=== PATIENT | male | born 1940 | race Caucasian/White ===

== ENCOUNTER 2022-05-02 12:14 | Inpatient (IN) | payer MEDICARE ==
[~2022-05-02] VITALS: Ht 175.3 cm; Wt 69.3 kg
[2022-05-02 13:23] LABS: VENOUS HCO3 24.7 MEQ/L (23.0-27.0); VENOUS O2 SATURATION 54.5 % (60.0-80.0); VENOUS PARTIAL PRESSURE CO2 44.5 mmHg (38.0-50.0); VENOUS PARTIAL PRESSURE O2 30.4 mmHg (30.0-50.0); VENOUS PH 7.362 UNITS (7.330-7.430); VENOUS STANDARD HCO3 22.5 MEQ/L; VENOUS TOTAL CO2 26.1 MEQ/L (24.0-28.0)
[2022-05-02 13:29] LABS: BASO % 0.2 % (0.0-1.0); HEMATOCRIT 45.6 % (42.0-52.0); HEMOGLOBIN 15.6 g/dl (13.5-17.5); MEAN CORPUSCULAR HEMOGLOBIN 31.8 pg (27.0-33.0); MEAN CORPUSCULAR HGB CONC 34.2 g/dl (32.0-36.5); MEAN CORPUSCULAR VOLUME 92.9 fl (80.0-96.0); MONO % 9.6 % (2.0-8.0); NEUTROPHILS # 21.5 10^3/uL (1.5-8.5); NEUTROPHILS % 85.6 % (36.0-66.0); PLATELET COUNT, AUTOMATED 241 10^3/uL (150-450); RED BLOOD COUNT 4.91 10^6/uL (4.30-6.10); WHITE BLOOD COUNT 25.1 10^3/uL (4.0-10.0)
[2022-05-02] MEDS ORDERED: GLIP5TAB8 PO (13:39)
[2022-05-02] MEDS ORDERED: LEVO50TA5 PO (13:39)
[2022-05-02] MEDS ORDERED: SIMV10TA21 PO (13:39)
[2022-05-02] MEDS ORDERED: PANT40TA29 PO (13:39)
[2022-05-02] MEDS ORDERED: DILT180C70 PO (13:39)
[2022-05-02 13:54] LABS: MONO # 2.4 10^3/uL (0.0-0.8)
[2022-05-02 14:17] LABS: RSV AMPLIFICATION NEGATIVE (NEGATIVE)
[2022-05-02 14:18] LABS: ALBUMIN 3.4 GM/DL (3.2-5.2); BILIRUBIN,DIRECT 0.3 MG/DL (0.0-0.2); BILIRUBIN,TOTAL 1.1 MG/DL (0.2-1.0); CALCIUM LEVEL 9.2 MG/DL (8.8-10.2); CREATININE FOR GFR 1.59 MG/DL (0.70-1.30); GLOMERULAR FILTRATION RATE 44.7 (>35); POTASSIUM SERUM 3.9 MEQ/L (3.5-5.1); THYROID STIMULATING HORMONE 0.518 uIU/ML (0.358-3.740); TOTAL PROTEIN 6.8 GM/DL (6.4-8.2)
[2022-05-02] MEDS ORDERED: NS 1,000 ML IV SCH (15:50)
[2022-05-02] MEDS ORDERED: NS 1,000 ML IV ONE (15:50)
[2022-05-02 15:52] LABS: BACTERIA, URINE NONE SEEN; HYALINE CAST, URINE NONE SEEN /lpf (0-1); MUCUS, URINE MOD AMOUNT (NEGATIVE); SQUAMOUS EPITHELIAL CELL URINE SMALL AMOUNT /hpf (SMALL AMT)
[2022-05-02] MEDS ORDERED: NS 1,520 ML in IV 1 EA IV ONE (15:55)
[2022-05-02] MEDS ORDERED: cefTRIAXone SOD 2 GM in D5W MINI-BAG PLUS 50 ML IV ONE (15:55)
[2022-05-02 16:03] LABS: AMORPHOUS SEDIMENT, URINE MOD AMOUNT (NEGATIVE)
[2022-05-02] MEDS ORDERED: HOME MED LIST COMPLETE! XX SCH (16:30)
[2022-05-02] MEDS ORDERED: GLUCOSE 4GM CHEW TABLET PO PRN (17:05)
[2022-05-02] MEDS ORDERED: ACETAMINOPHEN TAB 650MG DOSE (2X325MG) PO PRN (17:05)
[2022-05-02] MEDS ORDERED: MAALOX 30 ML SUSP *UDC PO PRN (17:05)
[2022-05-02] MEDS ORDERED: GLUCAGON INJ 1MG VIAL SC PRN (17:05)
[2022-05-02] MEDS ORDERED: DEXTROSE 50% 50 ML SYRINGE IV PRN (17:05)
[2022-05-02] MEDS ORDERED: MOM 30ML SUSPENSION UDC PO PRN (17:05)
[2022-05-02] MEDS ORDERED: PANTOPRAZOLE 40MG TAB (PROTONIX) PO PRN (17:35)
[2022-05-02] MEDS: NS 1,000 ML IV SCH (18:00)
[2022-05-02 19:11] LABS: HEMOGLOBIN A1c 6.1 %
[2022-05-02 19:54] LABS: CK-MB VALUE MASS 71.7 NG/ML (<3.6); MB/CK RELATIVE INDEX 1.65 (< OR =4)
[2022-05-02] MEDS: INSULIN LISPRO (NovoLOG) PER UNIT SC SCH ×2 (21:01→21:41)
[2022-05-02 21:27] LABS: CK-MB VALUE MASS 71.1 NG/ML (<3.6); MB/CK RELATIVE INDEX 1.64 (< OR =4)
[2022-05-02] MEDS: DOCUSATE SODIUM 100MG CAPSULE PO SCH (22:01)
[2022-05-02] MEDS: HEPARIN SOD (PORCINE) 5000UNITS/ML 1ML VIAL/SYRINGE SC SCH (22:02)
[2022-05-03 02:07] LABS: CK-MB VALUE MASS 66.5 NG/ML (<3.6); MB/CK RELATIVE INDEX 1.61 (< OR =4)
[2022-05-03] MEDS: NS 1,000 ML IV SCH ×2 (03:25→15:24)
[2022-05-03] MEDS: LEVOTHYROXINE 50MCG TABLET (0.05MG) PO SCH (06:00)
[2022-05-03] MEDS: HEPARIN SOD (PORCINE) 5000UNITS/ML 1ML VIAL/SYRINGE SC SCH ×3 (06:00→21:15)
[2022-05-03 06:47] LABS: BASO # 0.1 10^3/uL (0.0-0.2); BASO % 0.3 % (0.0-1.0); EOS % 0.1 % (0.0-3.0); HEMATOCRIT 45.4 % (42.0-52.0); LYMPH # 1.4 10^3/uL (1.5-5.0); LYMPH % 8.2 % (24.0-44.0); MEAN CORPUSCULAR HEMOGLOBIN 31.4 pg (27.0-33.0); MONO % 9.2 % (2.0-8.0); NEUTROPHILS # 14.2 10^3/uL (1.5-8.5); NEUTROPHILS % 81.6 % (36.0-66.0); PLATELET COUNT, AUTOMATED 216 10^3/uL (150-450); RED BLOOD COUNT 4.78 10^6/uL (4.30-6.10); WHITE BLOOD COUNT 17.4 10^3/uL (4.0-10.0)
[2022-05-03 07:27] LABS: ALT/SGPT 48 U/L (12-78); BILIRUBIN,DIRECT 0.4 MG/DL (0.0-0.2); BILIRUBIN,TOTAL 0.8 MG/DL (0.2-1.0); BLOOD UREA NITROGEN 25 MG/DL (7-18); CALCIUM LEVEL 9.1 MG/DL (8.8-10.2); CARBON DIOXIDE LEVEL 22 MEQ/L (21-32); CHLORIDE LEVEL 108 MEQ/L (98-107); CREATININE FOR GFR 1.25 MG/DL (0.70-1.30); GLUCOSE, FASTING 86 MG/DL (70-100); POTASSIUM SERUM 3.9 MEQ/L (3.5-5.1); SODIUM LEVEL 141 MEQ/L (136-145)
[2022-05-03] MEDS: INSULIN LISPRO (NovoLOG) PER UNIT SC SCH ×4 (07:30→21:00)
[2022-05-03 07:47] LABS: MONO # 1.6 10^3/uL (0.0-0.8)
[2022-05-03] MEDS: DOCUSATE SODIUM 100MG CAPSULE PO SCH ×2 (09:45→21:00)
[2022-05-03 11:54] LABS: HEPATITIS B SURFACE ANTIGEN NEGATIVE (NEGATIVE)
[2022-05-03 12:21] LABS: HEPATITIS B CORE ANTIBODY IGM NEGATIVE (NEGATIVE)
[2022-05-03] MEDS ORDERED: cefTRIAXone SOD 1 GM in D5W MINI-BAG PLUS 50 ML IV SCH (16:00)
[2022-05-03 17:14] VITALS: BP 135/77
[2022-05-03 20:00] VITALS: BP 146/74
[2022-05-04] VITALS: BP 155/73
[2022-05-04 04:00] VITALS: BP 133/73
[2022-05-04] MEDS: LEVOTHYROXINE 50MCG TABLET (0.05MG) PO SCH (05:12)
[2022-05-04] MEDS: NS 1,000 ML IV SCH ×2 (05:13→17:08)
[2022-05-04] MEDS: HEPARIN SOD (PORCINE) 5000UNITS/ML 1ML VIAL/SYRINGE SC SCH ×3 (05:13→22:01)
[2022-05-04 06:57] LABS: BASO # 0.1 10^3/uL (0.0-0.2); BASO % 0.4 % (0.0-1.0); EOS # 0.2 10^3/uL (0.0-0.5); EOS % 1.1 % (0.0-3.0); HEMATOCRIT 42.5 % (42.0-52.0); HEMOGLOBIN 14.2 g/dl (13.5-17.5); LYMPH # 1.4 10^3/uL (1.5-5.0); LYMPH % 10.3 % (24.0-44.0); MEAN CORPUSCULAR HEMOGLOBIN 31.8 pg (27.0-33.0); MEAN CORPUSCULAR HGB CONC 33.4 g/dl (32.0-36.5); MEAN CORPUSCULAR VOLUME 95.1 fl (80.0-96.0); MONO # 1.2 10^3/uL (0.0-0.8); MONO % 9.1 % (2.0-8.0); NEUTROPHILS # 10.6 10^3/uL (1.5-8.5); NEUTROPHILS % 78.6 % (36.0-66.0); PLATELET COUNT, AUTOMATED 199 10^3/uL (150-450); RED BLOOD COUNT 4.47 10^6/uL (4.30-6.10); WHITE BLOOD COUNT 13.5 10^3/uL (4.0-10.0)
[2022-05-04] MEDS: INSULIN LISPRO (NovoLOG) PER UNIT SC SCH ×4 (07:30→20:05)
[2022-05-04 07:34] LABS: ALBUMIN 2.8 GM/DL (3.2-5.2); BILIRUBIN,DIRECT 0.2 MG/DL (0.0-0.2); BILIRUBIN,TOTAL 0.5 MG/DL (0.2-1.0); CALCIUM LEVEL 8.8 MG/DL (8.8-10.2); CREATININE FOR GFR 1.25 MG/DL (0.70-1.30); MAGNESIUM LEVEL 1.9 MG/DL (1.8-2.4); POTASSIUM SERUM 3.8 MEQ/L (3.5-5.1); TOTAL PROTEIN 5.6 GM/DL (6.4-8.2)
[2022-05-04 08:01] VITALS: BP 113/59
[2022-05-04] MEDS: DOCUSATE SODIUM 100MG CAPSULE PO SCH ×2 (09:59→20:05)
[2022-05-04 11:42] VITALS: BP 109/55
[2022-05-04 16:00] VITALS: BP 118/62
[2022-05-04 20:00] VITALS: BP 128/90
[2022-05-05] VITALS: BP 147/70
[2022-05-05 04:00] VITALS: BP 120/62
[2022-05-05 05:21] LABS: BASO # 0.1 10^3/uL (0.0-0.2); BASO % 0.6 % (0.0-1.0); EOS # 0.3 10^3/uL (0.0-0.5); EOS % 2.4 % (0.0-3.0); HEMATOCRIT 39.9 % (42.0-52.0); HEMOGLOBIN 13.3 g/dl (13.5-17.5); LYMPH # 1.5 10^3/uL (1.5-5.0); LYMPH % 13.3 % (24.0-44.0); MEAN CORPUSCULAR HEMOGLOBIN 31.5 pg (27.0-33.0); MEAN CORPUSCULAR HGB CONC 33.3 g/dl (32.0-36.5); MEAN CORPUSCULAR VOLUME 94.5 fl (80.0-96.0); MONO # 1.2 10^3/uL (0.0-0.8); MONO % 10.8 % (2.0-8.0); NEUTROPHILS # 7.9 10^3/uL (1.5-8.5); NEUTROPHILS % 72.2 % (36.0-66.0); PLATELET COUNT, AUTOMATED 209 10^3/uL (150-450); RED BLOOD COUNT 4.22 10^6/uL (4.30-6.10)
[2022-05-05 06:01] LABS: ALBUMIN 2.3 GM/DL (3.2-5.2); ALT/SGPT 42 U/L (12-78); BILIRUBIN,DIRECT 0.4 MG/DL (0.0-0.2); BILIRUBIN,TOTAL 0.6 MG/DL (0.2-1.0); BLOOD UREA NITROGEN 29 MG/DL (7-18); CALCIUM LEVEL 8.2 MG/DL (8.8-10.2); CARBON DIOXIDE LEVEL 25 MEQ/L (21-32); CHLORIDE LEVEL 110 MEQ/L (98-107); CREATININE FOR GFR 1.16 MG/DL (0.70-1.30); GLOMERULAR FILTRATION RATE > 60.0 (>35); GLUCOSE, FASTING 104 MG/DL (70-100); MAGNESIUM LEVEL 1.8 MG/DL (1.8-2.4); POTASSIUM SERUM 3.7 MEQ/L (3.5-5.1); SODIUM LEVEL 141 MEQ/L (136-145); TOTAL PROTEIN 5.2 GM/DL (6.4-8.2)
[2022-05-05] MEDS: HEPARIN SOD (PORCINE) 5000UNITS/ML 1ML VIAL/SYRINGE SC SCH ×3 (06:26→21:09)
[2022-05-05] MEDS: LEVOTHYROXINE 50MCG TABLET (0.05MG) PO SCH (06:27)
[2022-05-05] MEDS: INSULIN LISPRO (NovoLOG) PER UNIT SC SCH ×4 (07:30→20:21)
[2022-05-05 08:00] VITALS: BP 133/64
[2022-05-05] MEDS: DOCUSATE SODIUM 100MG CAPSULE PO SCH ×2 (08:32→20:21)
[2022-05-05] MEDS: SENNA 8.6 MG TAB (SENOKOT) PO SCH ×2 (12:41→20:21)
[2022-05-05 14:00] VITALS: BP 157/79
[2022-05-05 20:00] VITALS: BP 140/68
[2022-05-06] VITALS (7 sets, daily range): BP systolic 144–170; BP diastolic 67–80
[2022-05-06] MEDS: LEVOTHYROXINE 50MCG TABLET (0.05MG) PO SCH (05:38)
[2022-05-06] MEDS: HEPARIN SOD (PORCINE) 5000UNITS/ML 1ML VIAL/SYRINGE SC SCH ×3 (05:38→20:53)
[2022-05-06 05:46] LABS: BASO # 0.1 10^3/uL (0.0-0.2); BASO % 0.7 % (0.0-1.0); EOS # 0.3 10^3/uL (0.0-0.5); EOS % 3.4 % (0.0-3.0); HEMATOCRIT 37.8 % (42.0-52.0); HEMOGLOBIN 12.6 g/dl (13.5-17.5); LYMPH # 1.5 10^3/uL (1.5-5.0); LYMPH % 16.6 % (24.0-44.0); MEAN CORPUSCULAR HEMOGLOBIN 30.8 pg (27.0-33.0); MEAN CORPUSCULAR HGB CONC 33.3 g/dl (32.0-36.5); MEAN CORPUSCULAR VOLUME 92.4 fl (80.0-96.0); MONO # 1.3 10^3/uL (0.0-0.8); MONO % 13.7 % (2.0-8.0); NEUTROPHILS % 64.7 % (36.0-66.0); PLATELET COUNT, AUTOMATED 210 10^3/uL (150-450); RED BLOOD COUNT 4.09 10^6/uL (4.30-6.10); WHITE BLOOD COUNT 9.2 10^3/uL (4.0-10.0)
[2022-05-06 06:40] LABS: BLOOD UREA NITROGEN 23 MG/DL (7-18); CREATININE FOR GFR 1.05 MG/DL (0.70-1.30); GLUCOSE, FASTING 120 MG/DL (70-100)
[2022-05-06 06:41] LABS: ALBUMIN 2.3 GM/DL (3.2-5.2); ALT/SGPT 40 U/L (12-78); BILIRUBIN,DIRECT 0.2 MG/DL (0.0-0.2); BILIRUBIN,TOTAL 0.5 MG/DL (0.2-1.0); CALCIUM LEVEL 8.2 MG/DL (8.8-10.2); CARBON DIOXIDE LEVEL 25 MEQ/L (21-32); CHLORIDE LEVEL 110 MEQ/L (98-107); GLOMERULAR FILTRATION RATE > 60.0 (>35); MAGNESIUM LEVEL 1.6 MG/DL (1.8-2.4); POTASSIUM SERUM 3.6 MEQ/L (3.5-5.1); SODIUM LEVEL 141 MEQ/L (136-145); TOTAL PROTEIN 5.2 GM/DL (6.4-8.2)
[2022-05-06] MEDS: MAG SULF 1GM/100ML (MAG RUN) 1 GM in IV 1 EA IV SCH ×4 (08:24→11:44)
[2022-05-06] MEDS: SENNA 8.6 MG TAB (SENOKOT) PO SCH ×2 (08:25→20:53)
[2022-05-06] MEDS: DOCUSATE SODIUM 100MG CAPSULE PO SCH ×2 (08:25→20:53)
[2022-05-06] MEDS: ATORVASTATIN 20 MG TAB PO SCH (08:25)
[2022-05-06] MEDS: INSULIN LISPRO (NovoLOG) PER UNIT SC SCH ×4 (08:25→20:54)
[2022-05-06] MEDS ORDERED: POTASSIUM CHLORIDE 10MEQ SR TABLET PO ONE (12:55)
[2022-05-07 05:54] VITALS: BP 121/74
[2022-05-07] MEDS: HEPARIN SOD (PORCINE) 5000UNITS/ML 1ML VIAL/SYRINGE SC SCH ×3 (05:57→20:41)
[2022-05-07] MEDS: LEVOTHYROXINE 50MCG TABLET (0.05MG) PO SCH (05:57)
[2022-05-07 06:01] LABS: BASO # 0.1 10^3/uL (0.0-0.2); BASO % 0.7 % (0.0-1.0); EOS # 0.4 10^3/uL (0.0-0.5); EOS % 3.7 % (0.0-3.0); HEMATOCRIT 36.4 % (42.0-52.0); HEMOGLOBIN 12.4 g/dl (13.5-17.5); LYMPH # 1.6 10^3/uL (1.5-5.0); MEAN CORPUSCULAR HEMOGLOBIN 31.3 pg (27.0-33.0); MEAN CORPUSCULAR HGB CONC 34.1 g/dl (32.0-36.5); MEAN CORPUSCULAR VOLUME 91.9 fl (80.0-96.0); MONO # 1.4 10^3/uL (0.0-0.8); MONO % 14.3 % (2.0-8.0); NEUTROPHILS # 6.2 10^3/uL (1.5-8.5); NEUTROPHILS % 64.3 % (36.0-66.0); PLATELET COUNT, AUTOMATED 213 10^3/uL (150-450); RED BLOOD COUNT 3.96 10^6/uL (4.30-6.10); WHITE BLOOD COUNT 9.7 10^3/uL (4.0-10.0)
[2022-05-07 06:27] LABS: ALBUMIN 2.2 GM/DL (3.2-5.2); ALT/SGPT 37 U/L (12-78); BILIRUBIN,DIRECT 0.3 MG/DL (0.0-0.2); BILIRUBIN,TOTAL 0.5 MG/DL (0.2-1.0); BLOOD UREA NITROGEN 21 MG/DL (7-18); CALCIUM LEVEL 8.4 MG/DL (8.8-10.2); CARBON DIOXIDE LEVEL 25 MEQ/L (21-32); CHLORIDE LEVEL 104 MEQ/L (98-107); CREATININE FOR GFR 1.07 MG/DL (0.70-1.30); GLOMERULAR FILTRATION RATE > 60.0 (>35); GLUCOSE, FASTING 116 MG/DL (70-100); MAGNESIUM LEVEL 2.3 MG/DL (1.8-2.4); POTASSIUM SERUM 3.7 MEQ/L (3.5-5.1); SODIUM LEVEL 137 MEQ/L (136-145)
[2022-05-07] MEDS: ATORVASTATIN 20 MG TAB PO SCH (08:19)
[2022-05-07] MEDS: INSULIN LISPRO (NovoLOG) PER UNIT SC SCH ×4 (08:20→19:56)
[2022-05-07] MEDS: DOCUSATE SODIUM 100MG CAPSULE PO SCH ×2 (09:00→20:41)
[2022-05-07] MEDS: SENNA 8.6 MG TAB (SENOKOT) PO SCH ×2 (09:00→20:41)
[2022-05-07 14:00] VITALS: BP 135/71
[2022-05-07 21:00] VITALS: BP 140/70
[2022-05-08] MEDS: HEPARIN SOD (PORCINE) 5000UNITS/ML 1ML VIAL/SYRINGE SC SCH ×3 (05:52→20:53)
[2022-05-08] MEDS: LEVOTHYROXINE 50MCG TABLET (0.05MG) PO SCH (05:52)
[2022-05-08 06:00] VITALS: BP 147/68
[2022-05-08] MEDS ORDERED: ASPIRIN 81 MG CHEW TABLET PO SCH (09:00)
[2022-05-08] MEDS: ATORVASTATIN 20 MG TAB PO SCH (09:25)
[2022-05-08] MEDS: SENNA 8.6 MG TAB (SENOKOT) PO SCH ×2 (09:25→19:45)
[2022-05-08] MEDS: DOCUSATE SODIUM 100MG CAPSULE PO SCH ×2 (09:25→19:45)
[2022-05-08] MEDS: INSULIN LISPRO (NovoLOG) PER UNIT SC SCH ×4 (09:26→20:49)
[2022-05-08] MEDS: ASPIRIN 81MG ENTERIC TABLET PO SCH (12:54)
[2022-05-09 03:38] VITALS: BP 138/70
[2022-05-09] MEDS: HEPARIN SOD (PORCINE) 5000UNITS/ML 1ML VIAL/SYRINGE SC SCH ×3 (05:27→20:40)
[2022-05-09] MEDS: LEVOTHYROXINE 50MCG TABLET (0.05MG) PO SCH (05:27)
[2022-05-09 06:00] VITALS: BP 128/89
[2022-05-09] MEDS: SENNA 8.6 MG TAB (SENOKOT) PO SCH ×2 (09:00→20:40)
[2022-05-09] MEDS: DOCUSATE SODIUM 100MG CAPSULE PO SCH ×2 (09:54→20:40)
[2022-05-09] MEDS: ASPIRIN 81MG ENTERIC TABLET PO SCH (09:54)
[2022-05-09] MEDS: ATORVASTATIN 20 MG TAB PO SCH (09:55)
[2022-05-09] MEDS: INSULIN LISPRO (NovoLOG) PER UNIT SC SCH ×4 (09:56→20:41)
[2022-05-10 05:05] VITALS: BP 136/69
[2022-05-10] MEDS: LEVOTHYROXINE 50MCG TABLET (0.05MG) PO SCH (05:05)
[2022-05-10] MEDS: HEPARIN SOD (PORCINE) 5000UNITS/ML 1ML VIAL/SYRINGE SC SCH ×3 (05:05→22:37)
[2022-05-10] MEDS: ASPIRIN 81MG ENTERIC TABLET PO SCH (08:19)
[2022-05-10] MEDS: ATORVASTATIN 20 MG TAB PO SCH (08:19)
[2022-05-10] MEDS: INSULIN LISPRO (NovoLOG) PER UNIT SC SCH ×4 (08:19→20:41)
[2022-05-10] MEDS: SENNA 8.6 MG TAB (SENOKOT) PO SCH ×2 (08:21→20:41)
[2022-05-10] MEDS: DOCUSATE SODIUM 100MG CAPSULE PO SCH ×2 (08:22→20:41)
[2022-05-11 04:50] VITALS: BP 134/66
[2022-05-11] MEDS: HEPARIN SOD (PORCINE) 5000UNITS/ML 1ML VIAL/SYRINGE SC SCH ×3 (06:00→21:41)
[2022-05-11] MEDS: LEVOTHYROXINE 50MCG TABLET (0.05MG) PO SCH (06:00)
[2022-05-11] MEDS: INSULIN LISPRO (NovoLOG) PER UNIT SC SCH ×4 (07:20→20:10)
[2022-05-11] MEDS: DOCUSATE SODIUM 100MG CAPSULE PO SCH ×2 (08:07→20:06)
[2022-05-11] MEDS: ASPIRIN 81MG ENTERIC TABLET PO SCH (08:07)
[2022-05-11] MEDS: SENNA 8.6 MG TAB (SENOKOT) PO SCH ×2 (08:08→20:06)
[2022-05-11] MEDS: ATORVASTATIN 20 MG TAB PO SCH (08:08)
[2022-05-11 21:00] VITALS: BP 144/84
[2022-05-12] MEDS: LEVOTHYROXINE 50MCG TABLET (0.05MG) PO SCH (05:47)
[2022-05-12] MEDS: HEPARIN SOD (PORCINE) 5000UNITS/ML 1ML VIAL/SYRINGE SC SCH ×3 (05:47→21:07)
[2022-05-12 06:30] VITALS: BP 126/63
[2022-05-12] MEDS: ASPIRIN 81MG ENTERIC TABLET PO SCH (07:59)
[2022-05-12] MEDS: INSULIN LISPRO (NovoLOG) PER UNIT SC SCH ×4 (07:59→21:00)
[2022-05-12] MEDS: ATORVASTATIN 20 MG TAB PO SCH (07:59)
[2022-05-12] MEDS: DOCUSATE SODIUM 100MG CAPSULE PO SCH ×2 (07:59→21:06)
[2022-05-12] MEDS: SENNA 8.6 MG TAB (SENOKOT) PO SCH ×2 (07:59→21:06)
[2022-05-13] MEDS: LEVOTHYROXINE 50MCG TABLET (0.05MG) PO SCH (05:33)
[2022-05-13] MEDS: HEPARIN SOD (PORCINE) 5000UNITS/ML 1ML VIAL/SYRINGE SC SCH ×2 (05:34→13:32)
[2022-05-13 05:50] VITALS: BP 151/77
[2022-05-13] MEDS: INSULIN LISPRO (NovoLOG) PER UNIT SC SCH ×2 (07:30→13:32)
[2022-05-13] MEDS: SENNA 8.6 MG TAB (SENOKOT) PO SCH (09:00)
[2022-05-13] MEDS: ATORVASTATIN 20 MG TAB PO SCH (09:11)
[2022-05-13] MEDS: ASPIRIN 81MG ENTERIC TABLET PO SCH (09:11)
[2022-05-13] MEDS: DOCUSATE SODIUM 100MG CAPSULE PO SCH (09:11)
[2022-05-13 09:12] VITALS: BP 151/77
[2022-05-13 09:59] VITALS: BP 130/72
[2022-05-13 11:58] VITALS: BP 125/70
[2022-05-13] MEDS ORDERED: HEPA500023 SC (12:29)
[2022-05-13] MEDS ORDERED: MIRA3350 PO (12:29)
[2022-05-13] MEDS ORDERED: COLA100C5 PO (12:29)
[2022-05-13] MEDS ORDERED: ASPI-551 PO (12:29)
== END 2022-05-13 17:05 | DRG 92 ==
LOC: M ED 12:14 → EDBD 12:14 → M ED INP 17:02 → ENRESERV 05-03 15:29 → M PCU 05-03 17:09 → M MSPAV 05-06 13:28
PROVIDERS: ADMIT Internal Medicine; ATTEND Internal Medicine
DX: R29.6 Repeated falls (principal); M62.82 Rhabdomyolysis; N17.9 Acute kidney failure, unspecified; E87.2 Acidosis; I12.9 Hypertensive chronic kidney disease with stage 1 through stage 4 chronic kidney disease, or unspecified chronic kidney disease; E11.22 Type 2 diabetes mellitus with diabetic chronic kidney disease; E78.5 Hyperlipidemia, unspecified; E03.9 Hypothyroidism, unspecified; N18.30 Chronic kidney disease, stage 3 unspecified; R55 Syncope and collapse; D72.829 Elevated white blood cell count, unspecified; K21.9 Gastro-esophageal reflux disease without esophagitis; Z66 Do not resuscitate; R00.1 Bradycardia, unspecified; E86.0 Dehydration; R23.8 Other skin changes; I48.0 Paroxysmal atrial fibrillation; R60.0 Localized edema; R74.01 Elevation of levels of liver transaminase levels; Z79.84 Long term (current) use of oral hypoglycemic drugs; Z79.890 Hormone replacement therapy; Z79.899 Other long term (current) drug therapy; Z88.8 Allergy status to other drugs, medicaments and biological substances

== ENCOUNTER 2023-09-13 08:34 | Inpatient (IN) | payer MEDICARE ==
[~2023-09-13] VITALS: Ht 175.3 cm; Wt 81.8 kg
[~2023-09-13 08:34] MED LIST: ASPI-551 PO; COLA100C5 PO; DILT180C70 PO; GLIP5TAB17 PO; HEPA500023 SC; LEVO50TA5 PO; MIRA3350 PO; PANT40TA29 PO; SIMV10TA21 PO
[2023-09-13] MEDS ORDERED: PANTOPRAZOLE 40MG TAB (PROTONIX) PO SCH (09:00)
[2023-09-13 09:33] LABS: VENOUS BASE EXCESS 2.4 (-2.0-2.0); VENOUS HCO3 28.8 MMOL/L (23.0-27.0); VENOUS O2 SATURATION 54.2 % (60.0-80.0); VENOUS PARTIAL PRESSURE CO2 50.8 mmHg (38.0-50.0); VENOUS PARTIAL PRESSURE O2 28.7 mmHg (30.0-50.0); VENOUS PH 7.372 UNITS (7.330-7.430); VENOUS STANDARD HCO3 25.4 MMOL/L; VENOUS TOTAL CO2 30.4 MMOL/L (24.0-28.0)
[2023-09-13 09:42] LABS: BASO # 0.1 10^3/uL (0.0-0.2); BASO % 0.5 % (0.0-1.0); EOS % 0.1 % (0.0-3.0); HEMATOCRIT 46.7 % (42.0-52.0); HEMOGLOBIN 15.5 g/dl (13.5-17.5); LYMPH # 0.9 10^3/uL (1.5-5.0); LYMPH % 7.7 % (24.0-44.0); MEAN CORPUSCULAR HEMOGLOBIN 32.2 pg (27.0-33.0); MEAN CORPUSCULAR HGB CONC 33.2 g/dl (32.0-36.5); MEAN CORPUSCULAR VOLUME 97.1 fl (80.0-96.0); MONO # 1.7 10^3/uL (0.0-0.8); MONO % 14.4 % (2.0-8.0); NEUTROPHILS # 8.9 10^3/uL (1.5-8.5); NEUTROPHILS % 76.7 % (36.0-66.0); PLATELET COUNT, AUTOMATED 216 10^3/uL (150-450); RED BLOOD COUNT 4.81 10^6/uL (4.30-6.10); WHITE BLOOD COUNT 11.6 10^3/uL (4.0-10.0)
[2023-09-13 10:02] LABS: ALBUMIN 3.7 G/DL (3.2-5.2); ALKALINE PHOSPHATASE 148 U/L (46-116); ALT/SGPT 31 U/L (7.0-40); AST/SGOT 42 U/L (<34); BILIRUBIN,DIRECT 0.2 MG/DL (<0.4); BILIRUBIN,TOTAL 0.6 MG/DL (0.3-1.2); BLOOD UREA NITROGEN 26 MG/DL (9-23); CALCIUM LEVEL 9.3 MG/DL (8.3-10.6); CARBON DIOXIDE LEVEL 29 MMOL/L (20-31); CHLORIDE LEVEL 100 MMOL/L (98-107); CK-MB VALUE MASS 1.7 NG/ML (<3.6); CREATININE FOR GFR 1.19 MG/DL (0.70-1.30); GLOMERULAR FILTRATION RATE > 60.0 (>35); GLUCOSE, FASTING 131 MG/DL (74-106); POTASSIUM SERUM 4.8 MMOL/L (3.5-5.1); SODIUM LEVEL 135 MMOL/L (136-145); TOTAL PROTEIN 6.6 G/DL (5.7-8.2)
[2023-09-13 10:04] LABS: FREE T4 1.09 NG/DL (0.89-1.76); THYROID STIMULATING HORMONE 1.487 uIU/ML (0.55-4.78)
[2023-09-13 10:05] LABS: CPK CREATINE PHOSPHOKINASE 550 U/L (46-171)
[2023-09-13 10:11] LABS: RSV AMPLIFICATION NEGATIVE (NEGATIVE)
[2023-09-13] MEDS ORDERED: ISOVUE-370 76% 100ML VIAL As Ordered ONE (10:33)
[2023-09-13 11:53] LABS: CK-MB VALUE MASS 1.9 NG/ML (<3.6)
[2023-09-13 11:55] LABS: MB/CK RELATIVE INDEX 0.37 (< OR =4)
[2023-09-13] MEDS ORDERED: REMDESIVIR 200 MG in NS 250 ML IV ONE ×2 (12:30→16:00)
[2023-09-13] MEDS ORDERED: **hydrALAZINE** 50 MG TAB PO ONE (12:30)
[2023-09-13] MEDS ORDERED: dexAMETHasone 20MG/5ML VIAL IV ONE (12:30)
[2023-09-13] MEDS ORDERED: MED REC IN PROGRESS XX SCH (13:10)
[2023-09-13] MEDS ORDERED: MIRALAX *UNIT DOSE* 17GM PACKET PO PRN (13:10)
[2023-09-13 14:30] VITALS: BP 165/90; TEMP 99; O2SAT 94
[2023-09-13] MEDS ORDERED: ALLO100T PO (14:30)
[2023-09-13] MEDS ORDERED: FURO20TA2 PO (14:30)
[2023-09-13] MEDS ORDERED: HOME MED LIST COMPLETE! XX SCH (14:40)
[2023-09-13] MEDS: NS 1,000 ML IV SCH (14:52)
[2023-09-13 15:45] VITALS: BP 142/81; TEMP 98.4; O2SAT 91
[2023-09-13] MEDS: LEVOTHYROXINE 50MCG TABLET (0.05MG) PO SCH (17:18)
[2023-09-13] MEDS: dilTIAZem **CD** 180MG CAP PO SCH (18:33)
[2023-09-13] MEDS: ASPIRIN 81MG ENTERIC TABLET PO SCH (18:36)
[2023-09-13 18:38] LABS: C REACTIVE PROTEIN QUANTITATIV 9.3 MG/DL (<1.0)
[2023-09-13 18:47] LABS: PROCALCITONIN 0.17 ng/ml
[2023-09-13 19:05] LABS: ERYTHROCYTE SEDIMENTATION RATE 60 mm/hr (0-20)
[2023-09-13] MEDS ORDERED: NIRMATRELVIR/RITONAVIR (RENAL) CO-PACK (EUA) PO SCH (21:00)
[2023-09-13] MEDS: HEPARIN SOD (PORCINE) 5000UNITS/ML 1ML VIAL/SYRINGE SQ SCH (21:15)
[2023-09-13] MEDS: DOCUSATE SODIUM 100MG CAPSULE PO SCH (21:15)
[2023-09-13] MEDS: NIRMATRELVIR/RITONAVIR CO-PACK (EMERGENCY USE AUTH) PO SCH (21:16)
[2023-09-14] MEDS: LEVOTHYROXINE 50MCG TABLET (0.05MG) PO SCH (05:31)
[2023-09-14] MEDS: HEPARIN SOD (PORCINE) 5000UNITS/ML 1ML VIAL/SYRINGE SQ SCH ×3 (05:32→21:18)
[2023-09-14 06:00] VITALS: BP 123/74; TEMP 98.8; O2SAT 94
[2023-09-14 06:34] LABS: BASO % 0.1 % (0.0-1.0); HEMATOCRIT 40.2 % (42.0-52.0); HEMOGLOBIN 13.6 g/dl (13.5-17.5); LYMPH # 0.9 10^3/uL (1.5-5.0); LYMPH % 13.2 % (24.0-44.0); MEAN CORPUSCULAR HEMOGLOBIN 32.5 pg (27.0-33.0); MEAN CORPUSCULAR HGB CONC 33.8 g/dl (32.0-36.5); MEAN CORPUSCULAR VOLUME 96.2 fl (80.0-96.0); MONO # 0.4 10^3/uL (0.0-0.8); MONO % 5.7 % (2.0-8.0); NEUTROPHILS # 5.4 10^3/uL (1.5-8.5); NEUTROPHILS % 80.7 % (36.0-66.0); PLATELET COUNT, AUTOMATED 182 10^3/uL (150-450); RED BLOOD COUNT 4.18 10^6/uL (4.30-6.10); WHITE BLOOD COUNT 6.7 10^3/uL (4.0-10.0)
[2023-09-14] MEDS: NS 1,000 ML IV SCH ×2 (06:42→18:25)
[2023-09-14 07:04] LABS: CALCIUM LEVEL 8.1 MG/DL (8.3-10.6); CREATININE FOR GFR 1.34 MG/DL (0.70-1.30); GLOMERULAR FILTRATION RATE 54.3 (>35); POTASSIUM SERUM 4.4 MMOL/L (3.5-5.1)
[2023-09-14] MEDS: ASPIRIN 81MG ENTERIC TABLET PO SCH (09:51)
[2023-09-14] MEDS: dilTIAZem **CD** 180MG CAP PO SCH (09:53)
[2023-09-14] MEDS: DOCUSATE SODIUM 100MG CAPSULE PO SCH ×2 (09:53→21:18)
[2023-09-14] MEDS: NIRMATRELVIR/RITONAVIR CO-PACK (EMERGENCY USE AUTH) PO SCH ×2 (09:54→21:19)
[2023-09-14 14:00] VITALS: BP 126/74; TEMP 97.9; O2SAT 94
[2023-09-14 16:44] LABS: CALCIUM LEVEL 8.3 MG/DL (8.3-10.6); CREATININE FOR GFR 1.34 MG/DL (0.70-1.30); GLOMERULAR FILTRATION RATE 54.3 (>35); POTASSIUM SERUM 4.7 MMOL/L (3.5-5.1)
[2023-09-14] MEDS ORDERED: NS 500 ML IV ONE (17:50)
[2023-09-14 22:00] VITALS: BP 126/65; TEMP 98.4; O2SAT 93
[2023-09-15] MEDS: HEPARIN SOD (PORCINE) 5000UNITS/ML 1ML VIAL/SYRINGE SQ SCH ×3 (05:30→20:37)
[2023-09-15] MEDS: NS 1,000 ML IV SCH (05:30)
[2023-09-15] MEDS: LEVOTHYROXINE 50MCG TABLET (0.05MG) PO SCH (05:30)
[2023-09-15 05:51] LABS: HEMATOCRIT 40.4 % (42.0-52.0); HEMOGLOBIN 13.7 g/dl (13.5-17.5); LYMPH # 1.2 10^3/uL (1.5-5.0); LYMPH % 14.1 % (24.0-44.0); MEAN CORPUSCULAR HEMOGLOBIN 32.8 pg (27.0-33.0); MEAN CORPUSCULAR HGB CONC 33.9 g/dl (32.0-36.5); MEAN CORPUSCULAR VOLUME 96.7 fl (80.0-96.0); MONO # 0.8 10^3/uL (0.0-0.8); MONO % 9.9 % (2.0-8.0); NEUTROPHILS # 6.3 10^3/uL (1.5-8.5); NEUTROPHILS % 75.8 % (36.0-66.0); PLATELET COUNT, AUTOMATED 189 10^3/uL (150-450); RED BLOOD COUNT 4.18 10^6/uL (4.30-6.10); WHITE BLOOD COUNT 8.3 10^3/uL (4.0-10.0)
[2023-09-15 06:00] VITALS: BP 132/78; TEMP 98.1; O2SAT 95
[2023-09-15 06:17] LABS: CALCIUM LEVEL 8.1 MG/DL (8.3-10.6); CREATININE FOR GFR 1.33 MG/DL (0.70-1.30); GLOMERULAR FILTRATION RATE 54.8 (>35)
[2023-09-15] MEDS: ASPIRIN 81MG ENTERIC TABLET PO SCH (08:30)
[2023-09-15] MEDS: dilTIAZem **CD** 180MG CAP PO SCH (08:31)
[2023-09-15] MEDS: DOCUSATE SODIUM 100MG CAPSULE PO SCH ×2 (08:31→20:36)
[2023-09-15] MEDS: NIRMATRELVIR/RITONAVIR CO-PACK (EMERGENCY USE AUTH) PO SCH (08:32)
[2023-09-15] MEDS ORDERED: NS 1,000 ML IV ONE (09:00)
[2023-09-15 14:00] VITALS: BP 132/78; TEMP 98.1; O2SAT 97
[2023-09-15 18:59] LABS: BLOOD UREA NITROGEN 41 MG/DL (9-23); CALCIUM LEVEL 7.7 MG/DL (8.3-10.6); CARBON DIOXIDE LEVEL 23 MMOL/L (20-31); CHLORIDE LEVEL 106 MMOL/L (98-107); CREATININE FOR GFR 1.22 MG/DL (0.70-1.30); GLOMERULAR FILTRATION RATE > 60.0 (>35); GLUCOSE, FASTING 212 MG/DL (74-106); POTASSIUM SERUM 4.3 MMOL/L (3.5-5.1); SODIUM LEVEL 136 MMOL/L (136-145)
[2023-09-15 20:04] VITALS: BP 139/80; TEMP 98.1; O2SAT 96
[2023-09-15] MEDS: DIMETHICONE 2% OINTMENT(VANICREAM) 70GM TUBE TOP SCH (20:36)
[2023-09-16] MEDS: LEVOTHYROXINE 50MCG TABLET (0.05MG) PO SCH (05:38)
[2023-09-16] MEDS: HEPARIN SOD (PORCINE) 5000UNITS/ML 1ML VIAL/SYRINGE SQ SCH ×3 (05:38→20:19)
[2023-09-16 06:13] LABS: BASO % 0.2 % (0.0-1.0); HEMATOCRIT 42.2 % (42.0-52.0); HEMOGLOBIN 14.5 g/dl (13.5-17.5); LYMPH # 1.6 10^3/uL (1.5-5.0); LYMPH % 16.8 % (24.0-44.0); MEAN CORPUSCULAR HGB CONC 34.4 g/dl (32.0-36.5); MEAN CORPUSCULAR VOLUME 95.9 fl (80.0-96.0); MONO # 0.8 10^3/uL (0.0-0.8); NEUTROPHILS # 7.2 10^3/uL (1.5-8.5); NEUTROPHILS % 74.6 % (36.0-66.0); PLATELET COUNT, AUTOMATED 216 10^3/uL (150-450); WHITE BLOOD COUNT 9.7 10^3/uL (4.0-10.0)
[2023-09-16 06:14] VITALS: BP 137/80; TEMP 98.2; O2SAT 96
[2023-09-16 06:38] LABS: BLOOD UREA NITROGEN 35 MG/DL (9-23); CALCIUM LEVEL 7.9 MG/DL (8.3-10.6); CARBON DIOXIDE LEVEL 25 MMOL/L (20-31); CHLORIDE LEVEL 107 MMOL/L (98-107); GLOMERULAR FILTRATION RATE > 60.0 (>35); GLUCOSE, FASTING 167 MG/DL (74-106); POTASSIUM SERUM 4.3 MMOL/L (3.5-5.1); SODIUM LEVEL 139 MMOL/L (136-145)
[2023-09-16] MEDS: dilTIAZem **CD** 180MG CAP PO SCH (09:40)
[2023-09-16] MEDS: ASPIRIN 81MG ENTERIC TABLET PO SCH (09:40)
[2023-09-16] MEDS: DOCUSATE SODIUM 100MG CAPSULE PO SCH ×2 (09:40→20:18)
[2023-09-16] MEDS: DIMETHICONE 2% OINTMENT(VANICREAM) 70GM TUBE TOP SCH ×2 (09:41→20:19)
[2023-09-16 14:00] VITALS: BP 130/68; TEMP 97.7; O2SAT 96
[2023-09-16] MEDS ORDERED: ALBUTEROL 90 MCG/ACT 8GM HFA INHALER INH PRN (18:25)
[2023-09-16] MEDS ORDERED: IPRATROPIUM 0.5MG/ALBUTEROL 2.5MG INH SOL UD 3ML (DUONEB) NEB ONE (18:25)
[2023-09-16 20:26] VITALS: BP 143/75; TEMP 98.4; O2SAT 96
[2023-09-17 05:09] VITALS: BP 138/68; TEMP 98.8; O2SAT 100
[2023-09-17] MEDS: HEPARIN SOD (PORCINE) 5000UNITS/ML 1ML VIAL/SYRINGE SQ SCH ×3 (05:36→21:17)
[2023-09-17] MEDS: LEVOTHYROXINE 50MCG TABLET (0.05MG) PO SCH (05:36)
[2023-09-17 08:53] LABS: BASO % 0.2 % (0.0-1.0); EOS # 0.1 10^3/uL (0.0-0.5); EOS % 0.5 % (0.0-3.0); LYMPH # 2.3 10^3/uL (1.5-5.0); LYMPH % 21.1 % (24.0-44.0); MEAN CORPUSCULAR HEMOGLOBIN 32.6 pg (27.0-33.0); MEAN CORPUSCULAR HGB CONC 34.1 g/dl (32.0-36.5); MEAN CORPUSCULAR VOLUME 95.6 fl (80.0-96.0); MONO # 1.1 10^3/uL (0.0-0.8); MONO % 9.7 % (2.0-8.0); NEUTROPHILS # 7.3 10^3/uL (1.5-8.5); NEUTROPHILS % 67.4 % (36.0-66.0); PLATELET COUNT, AUTOMATED 221 10^3/uL (150-450); RED BLOOD COUNT 4.29 10^6/uL (4.30-6.10); WHITE BLOOD COUNT 10.8 10^3/uL (4.0-10.0)
[2023-09-17 09:16] LABS: BLOOD UREA NITROGEN 28 MG/DL (9-23); CALCIUM LEVEL 8.2 MG/DL (8.3-10.6); CARBON DIOXIDE LEVEL 30 MMOL/L (20-31); CHLORIDE LEVEL 106 MMOL/L (98-107); CREATININE FOR GFR 1.17 MG/DL (0.70-1.30); GLOMERULAR FILTRATION RATE > 60.0 (>35); GLUCOSE, FASTING 170 MG/DL (74-106); POTASSIUM SERUM 3.9 MMOL/L (3.5-5.1); SODIUM LEVEL 140 MMOL/L (136-145)
[2023-09-17] MEDS: DOCUSATE SODIUM 100MG CAPSULE PO SCH ×2 (09:33→21:18)
[2023-09-17] MEDS: ASPIRIN 81MG ENTERIC TABLET PO SCH (09:33)
[2023-09-17] MEDS: dilTIAZem **CD** 180MG CAP PO SCH (09:35)
[2023-09-17] MEDS: DIMETHICONE 2% OINTMENT(VANICREAM) 70GM TUBE TOP SCH ×2 (09:36→21:18)
[2023-09-17 14:00] VITALS: BP 147/89; TEMP 97.9; O2SAT 84
[2023-09-18] MEDS: LEVOTHYROXINE 50MCG TABLET (0.05MG) PO SCH (05:25)
[2023-09-18] MEDS: HEPARIN SOD (PORCINE) 5000UNITS/ML 1ML VIAL/SYRINGE SQ SCH ×3 (05:26→21:40)
[2023-09-18 05:58] LABS: BASO # 0.1 10^3/uL (0.0-0.2); BASO % 0.4 % (0.0-1.0); EOS # 0.2 10^3/uL (0.0-0.5); EOS % 1.2 % (0.0-3.0); HEMATOCRIT 43.5 % (42.0-52.0); LYMPH # 2.2 10^3/uL (1.5-5.0); LYMPH % 17.4 % (24.0-44.0); MEAN CORPUSCULAR HEMOGLOBIN 32.1 pg (27.0-33.0); MEAN CORPUSCULAR HGB CONC 34.5 g/dl (32.0-36.5); MEAN CORPUSCULAR VOLUME 93.1 fl (80.0-96.0); MONO # 1.1 10^3/uL (0.0-0.8); NEUTROPHILS # 8.9 10^3/uL (1.5-8.5); NEUTROPHILS % 70.7 % (36.0-66.0); PLATELET COUNT, AUTOMATED 228 10^3/uL (150-450); RED BLOOD COUNT 4.67 10^6/uL (4.30-6.10); WHITE BLOOD COUNT 12.6 10^3/uL (4.0-10.0)
[2023-09-18 06:00] VITALS: BP 142/87; TEMP 98.8; O2SAT 95
[2023-09-18 06:21] LABS: BLOOD UREA NITROGEN 26 MG/DL (9-23); CALCIUM LEVEL 8.3 MG/DL (8.3-10.6); CARBON DIOXIDE LEVEL 26 MMOL/L (20-31); CHLORIDE LEVEL 106 MMOL/L (98-107); CREATININE FOR GFR 1.08 MG/DL (0.70-1.30); GLOMERULAR FILTRATION RATE > 60.0 (>35); GLUCOSE, FASTING 141 MG/DL (74-106); POTASSIUM SERUM 4.4 MMOL/L (3.5-5.1); SODIUM LEVEL 138 MMOL/L (136-145)
[2023-09-18] MEDS: DOCUSATE SODIUM 100MG CAPSULE PO SCH ×2 (11:41→21:40)
[2023-09-18] MEDS: dilTIAZem **CD** 180MG CAP PO SCH (11:41)
[2023-09-18] MEDS: ASPIRIN 81MG ENTERIC TABLET PO SCH (11:41)
[2023-09-18] MEDS: DIMETHICONE 2% OINTMENT(VANICREAM) 70GM TUBE TOP SCH ×2 (11:41→21:40)
[2023-09-18 14:00] VITALS: BP 113/69; TEMP 98.8; O2SAT 96
[2023-09-19] VITALS: BP 125/88; TEMP 98.8; O2SAT 96
[2023-09-19 05:11] VITALS: BP 127/85; TEMP 98.6; O2SAT 95
[2023-09-19] MEDS: LEVOTHYROXINE 50MCG TABLET (0.05MG) PO SCH (06:18)
[2023-09-19] MEDS: HEPARIN SOD (PORCINE) 5000UNITS/ML 1ML VIAL/SYRINGE SQ SCH ×3 (06:18→21:58)
[2023-09-19 06:19] LABS: CALCIUM LEVEL 8.6 MG/DL (8.3-10.6); CREATININE FOR GFR 1.31 MG/DL (0.70-1.30); GLOMERULAR FILTRATION RATE 55.8 (>35); POTASSIUM SERUM 4.6 MMOL/L (3.5-5.1)
[2023-09-19] MEDS: DOCUSATE SODIUM 100MG CAPSULE PO SCH ×2 (08:41→21:58)
[2023-09-19] MEDS: dilTIAZem **CD** 180MG CAP PO SCH (08:44)
[2023-09-19] MEDS: ASPIRIN 81MG ENTERIC TABLET PO SCH (08:44)
[2023-09-19] MEDS: DIMETHICONE 2% OINTMENT(VANICREAM) 70GM TUBE TOP SCH ×2 (08:44→21:58)
[2023-09-19] MEDS ORDERED: NS 1,000 ML IV ONE (09:40)
[2023-09-19 10:00] LABS: C REACTIVE PROTEIN QUANTITATIV 2.4 MG/DL (<1.0)
[2023-09-19 10:13] LABS: PROCALCITONIN 0.09 ng/ml
[2023-09-19 12:14] LABS: CALCIUM LEVEL 8.4 MG/DL (8.3-10.6); CREATININE FOR GFR 1.3 MG/DL (0.70-1.30); GLOMERULAR FILTRATION RATE 56.3 (>35); POTASSIUM SERUM 4.1 MMOL/L (3.5-5.1)
[2023-09-19 14:00] VITALS: BP 125/67; TEMP 98.8; O2SAT 95
[2023-09-19 18:46] LABS: CALCIUM LEVEL 7.9 MG/DL (8.3-10.6); CREATININE FOR GFR 1.31 MG/DL (0.70-1.30); GLOMERULAR FILTRATION RATE 55.8 (>35); POTASSIUM SERUM 4.4 MMOL/L (3.5-5.1)
[2023-09-20 01:07] LABS: CALCIUM LEVEL 8.1 MG/DL (8.3-10.6); CREATININE FOR GFR 1.36 MG/DL (0.70-1.30); GLOMERULAR FILTRATION RATE 53.4 (>35); POTASSIUM SERUM 4.6 MMOL/L (3.5-5.1)
[2023-09-20 05:37] VITALS: BP 150/88; TEMP 97.9; O2SAT 98
[2023-09-20] MEDS: HEPARIN SOD (PORCINE) 5000UNITS/ML 1ML VIAL/SYRINGE SQ SCH ×3 (06:04→22:03)
[2023-09-20] MEDS: LEVOTHYROXINE 50MCG TABLET (0.05MG) PO SCH (06:04)
[2023-09-20 06:51] LABS: BLOOD UREA NITROGEN 26 MG/DL (9-23); CALCIUM LEVEL 8.3 MG/DL (8.3-10.6); CARBON DIOXIDE LEVEL 26 MMOL/L (20-31); CHLORIDE LEVEL 105 MMOL/L (98-107); CREATININE FOR GFR 1.21 MG/DL (0.70-1.30); GLOMERULAR FILTRATION RATE > 60.0 (>35); GLUCOSE, FASTING 157 MG/DL (74-106); POTASSIUM SERUM 4.3 MMOL/L (3.5-5.1); SODIUM LEVEL 139 MMOL/L (136-145)
[2023-09-20] MEDS: DIMETHICONE 2% OINTMENT(VANICREAM) 70GM TUBE TOP SCH ×2 (08:25→22:03)
[2023-09-20] MEDS: ASPIRIN 81MG ENTERIC TABLET PO SCH (08:25)
[2023-09-20] MEDS: dilTIAZem **CD** 180MG CAP PO SCH (08:25)
[2023-09-20] MEDS: DOCUSATE SODIUM 100MG CAPSULE PO SCH ×2 (08:25→22:02)
[2023-09-21 05:34] VITALS: BP 150/88; TEMP 98.1; O2SAT 96
[2023-09-21] MEDS: LEVOTHYROXINE 50MCG TABLET (0.05MG) PO SCH (05:52)
[2023-09-21] MEDS: HEPARIN SOD (PORCINE) 5000UNITS/ML 1ML VIAL/SYRINGE SQ SCH ×3 (05:52→22:00)
[2023-09-21] MEDS: ASPIRIN 81MG ENTERIC TABLET PO SCH (08:16)
[2023-09-21] MEDS: DOCUSATE SODIUM 100MG CAPSULE PO SCH ×2 (08:17→20:41)
[2023-09-21] MEDS: DIMETHICONE 2% OINTMENT(VANICREAM) 70GM TUBE TOP SCH ×2 (08:17→20:41)
[2023-09-21] MEDS: dilTIAZem **CD** 180MG CAP PO SCH (08:17)
[2023-09-21 10:05] LABS: CALCIUM LEVEL 8.5 MG/DL (8.3-10.6); CREATININE FOR GFR 1.27 MG/DL (0.70-1.30); GLOMERULAR FILTRATION RATE 57.8 (>35); POTASSIUM SERUM 4.6 MMOL/L (3.5-5.1)
[2023-09-21 11:26] LABS: BASO # 0.1 10^3/uL (0.0-0.2); BASO % 0.6 % (0.0-1.0); EOS # 0.2 10^3/uL (0.0-0.5); EOS % 1.9 % (0.0-3.0); HEMATOCRIT 46.4 % (42.0-52.0); HEMOGLOBIN 15.7 g/dl (13.5-17.5); LYMPH # 2.3 10^3/uL (1.5-5.0); LYMPH % 17.9 % (24.0-44.0); MEAN CORPUSCULAR HEMOGLOBIN 32.2 pg (27.0-33.0); MEAN CORPUSCULAR HGB CONC 33.8 g/dl (32.0-36.5); MEAN CORPUSCULAR VOLUME 95.1 fl (80.0-96.0); MONO # 0.7 10^3/uL (0.0-0.8); MONO % 5.5 % (2.0-8.0); NEUTROPHILS # 9.1 10^3/uL (1.5-8.5); NEUTROPHILS % 72.5 % (36.0-66.0); PLATELET COUNT, AUTOMATED 268 10^3/uL (150-450); RED BLOOD COUNT 4.88 10^6/uL (4.30-6.10); WHITE BLOOD COUNT 12.6 10^3/uL (4.0-10.0)
[2023-09-21 11:30] LABS: PROCALCITONIN 0.08 ng/ml
[2023-09-21 12:00] LABS: ERYTHROCYTE SEDIMENTATION RATE 49 mm/hr (0-20)
[2023-09-21] MEDS: LevoFLOXacin 250 MG TABLET PO SCH (12:19)
[2023-09-22 05:42] VITALS: BP 148/87; TEMP 98.4; O2SAT 98
[2023-09-22] MEDS: LevoFLOXacin 250 MG TABLET PO SCH (06:24)
[2023-09-22] MEDS: LEVOTHYROXINE 50MCG TABLET (0.05MG) PO SCH (06:24)
[2023-09-22] MEDS: HEPARIN SOD (PORCINE) 5000UNITS/ML 1ML VIAL/SYRINGE SQ SCH ×3 (06:24→21:31)
[2023-09-22] MEDS: DIMETHICONE 2% OINTMENT(VANICREAM) 70GM TUBE TOP SCH ×2 (08:17→21:32)
[2023-09-22] MEDS: dilTIAZem **CD** 180MG CAP PO SCH (08:17)
[2023-09-22] MEDS: DOCUSATE SODIUM 100MG CAPSULE PO SCH ×2 (08:17→21:31)
[2023-09-22] MEDS: ASPIRIN 81MG ENTERIC TABLET PO SCH (08:17)
[2023-09-23 05:35] VITALS: BP 139/85; TEMP 97.7; O2SAT 97
[2023-09-23] MEDS: LEVOTHYROXINE 50MCG TABLET (0.05MG) PO SCH (06:13)
[2023-09-23] MEDS: HEPARIN SOD (PORCINE) 5000UNITS/ML 1ML VIAL/SYRINGE SQ SCH ×3 (06:13→20:53)
[2023-09-23] MEDS: LevoFLOXacin 250 MG TABLET PO SCH (06:13)
[2023-09-23] MEDS: DOCUSATE SODIUM 100MG CAPSULE PO SCH ×2 (08:06→20:52)
[2023-09-23] MEDS: DIMETHICONE 2% OINTMENT(VANICREAM) 70GM TUBE TOP SCH ×2 (08:06→20:53)
[2023-09-23] MEDS: ASPIRIN 81MG ENTERIC TABLET PO SCH (08:06)
[2023-09-23] MEDS: dilTIAZem **CD** 180MG CAP PO SCH (08:06)
[2023-09-23 20:47] VITALS: BP 145/83; TEMP 97; O2SAT 98
[2023-09-24 05:42] VITALS: BP 143/82; TEMP 97; O2SAT 98
[2023-09-24] MEDS: LEVOTHYROXINE 50MCG TABLET (0.05MG) PO SCH (05:46)
[2023-09-24] MEDS: HEPARIN SOD (PORCINE) 5000UNITS/ML 1ML VIAL/SYRINGE SQ SCH ×3 (05:47→21:10)
[2023-09-24] MEDS: LevoFLOXacin 250 MG TABLET PO SCH (05:47)
[2023-09-24] MEDS: dilTIAZem **CD** 180MG CAP PO SCH (08:30)
[2023-09-24] MEDS: DIMETHICONE 2% OINTMENT(VANICREAM) 70GM TUBE TOP SCH ×2 (08:30→21:10)
[2023-09-24] MEDS: DOCUSATE SODIUM 100MG CAPSULE PO SCH ×2 (08:30→21:10)
[2023-09-24] MEDS: ASPIRIN 81MG ENTERIC TABLET PO SCH (08:30)
[2023-09-25 06:00] VITALS: BP 146/82; TEMP 97.2; O2SAT 98
[2023-09-25] MEDS: HEPARIN SOD (PORCINE) 5000UNITS/ML 1ML VIAL/SYRINGE SQ SCH ×3 (06:07→20:42)
[2023-09-25] MEDS: LEVOTHYROXINE 50MCG TABLET (0.05MG) PO SCH (06:07)
[2023-09-25] MEDS: LevoFLOXacin 250 MG TABLET PO SCH (06:07)
[2023-09-25] MEDS: DIMETHICONE 2% OINTMENT(VANICREAM) 70GM TUBE TOP SCH ×2 (08:49→20:42)
[2023-09-25] MEDS: DOCUSATE SODIUM 100MG CAPSULE PO SCH ×2 (08:49→20:42)
[2023-09-25] MEDS: ASPIRIN 81MG ENTERIC TABLET PO SCH (08:49)
[2023-09-25] MEDS: dilTIAZem **CD** 180MG CAP PO SCH (08:49)
[2023-09-26 06:22] VITALS: BP 118/73; TEMP 97.7; O2SAT 97
[2023-09-26] MEDS: LEVOTHYROXINE 50MCG TABLET (0.05MG) PO SCH (06:22)
[2023-09-26] MEDS: LevoFLOXacin 250 MG TABLET PO SCH (06:22)
[2023-09-26] MEDS: HEPARIN SOD (PORCINE) 5000UNITS/ML 1ML VIAL/SYRINGE SQ SCH ×3 (06:23→21:19)
[2023-09-26 08:00] VITALS: BP 120/77
[2023-09-26] MEDS: ASPIRIN 81MG ENTERIC TABLET PO SCH (08:54)
[2023-09-26] MEDS: dilTIAZem **CD** 180MG CAP PO SCH (08:54)
[2023-09-26] MEDS: DOCUSATE SODIUM 100MG CAPSULE PO SCH ×2 (08:54→21:19)
[2023-09-26] MEDS: DIMETHICONE 2% OINTMENT(VANICREAM) 70GM TUBE TOP SCH ×2 (08:55→21:19)
[2023-09-27 06:00] VITALS: BP 124/76; TEMP 97.5; O2SAT 78
[2023-09-27] MEDS: LevoFLOXacin 250 MG TABLET PO SCH (06:14)
[2023-09-27] MEDS: HEPARIN SOD (PORCINE) 5000UNITS/ML 1ML VIAL/SYRINGE SQ SCH ×3 (06:14→21:11)
[2023-09-27] MEDS: LEVOTHYROXINE 50MCG TABLET (0.05MG) PO SCH (06:14)
[2023-09-27] MEDS: ASPIRIN 81MG ENTERIC TABLET PO SCH (10:06)
[2023-09-27] MEDS: DOCUSATE SODIUM 100MG CAPSULE PO SCH ×2 (10:06→21:12)
[2023-09-27] MEDS: dilTIAZem **CD** 180MG CAP PO SCH (10:06)
[2023-09-27] MEDS: DIMETHICONE 2% OINTMENT(VANICREAM) 70GM TUBE TOP SCH ×2 (10:07→21:12)
[2023-09-28] MEDS: LEVOTHYROXINE 50MCG TABLET (0.05MG) PO SCH (05:40)
[2023-09-28] MEDS: HEPARIN SOD (PORCINE) 5000UNITS/ML 1ML VIAL/SYRINGE SQ SCH ×3 (05:41→21:59)
[2023-09-28 06:00] VITALS: BP 124/77; TEMP 97.3; O2SAT 98
[2023-09-28] MEDS: DOCUSATE SODIUM 100MG CAPSULE PO SCH ×2 (08:30→20:41)
[2023-09-28] MEDS: dilTIAZem **CD** 180MG CAP PO SCH (08:30)
[2023-09-28] MEDS: DIMETHICONE 2% OINTMENT(VANICREAM) 70GM TUBE TOP SCH ×2 (08:30→20:42)
[2023-09-28] MEDS: ASPIRIN 81MG ENTERIC TABLET PO SCH (08:30)
[2023-09-29] MEDS: HEPARIN SOD (PORCINE) 5000UNITS/ML 1ML VIAL/SYRINGE SQ SCH ×3 (05:35→21:45)
[2023-09-29] MEDS: LEVOTHYROXINE 50MCG TABLET (0.05MG) PO SCH (05:35)
[2023-09-29 05:40] VITALS: BP 139/74; TEMP 97.5; O2SAT 98
[2023-09-29 07:45] VITALS: BP 125/80
[2023-09-29] MEDS: dilTIAZem **CD** 180MG CAP PO SCH (07:54)
[2023-09-29] MEDS: DOCUSATE SODIUM 100MG CAPSULE PO SCH ×2 (07:54→21:45)
[2023-09-29] MEDS: DIMETHICONE 2% OINTMENT(VANICREAM) 70GM TUBE TOP SCH ×2 (07:55→21:46)
[2023-09-29] MEDS: ASPIRIN 81MG ENTERIC TABLET PO SCH (07:55)
[2023-09-30 04:56] VITALS: BP 126/78; TEMP 98.2; O2SAT 99
[2023-09-30] MEDS: HEPARIN SOD (PORCINE) 5000UNITS/ML 1ML VIAL/SYRINGE SQ SCH ×3 (05:14→21:27)
[2023-09-30] MEDS: LEVOTHYROXINE 50MCG TABLET (0.05MG) PO SCH (05:14)
[2023-09-30] MEDS: DOCUSATE SODIUM 100MG CAPSULE PO SCH ×2 (08:50→21:27)
[2023-09-30] MEDS: ASPIRIN 81MG ENTERIC TABLET PO SCH (08:50)
[2023-09-30] MEDS: DIMETHICONE 2% OINTMENT(VANICREAM) 70GM TUBE TOP SCH ×2 (08:51→21:28)
[2023-09-30] MEDS: dilTIAZem **CD** 180MG CAP PO SCH (08:51)
[2023-09-30 18:57] LABS: HEMATOCRIT 48.4 % (42.0-52.0); HEMOGLOBIN 16.6 g/dl (13.5-17.5)
[2023-09-30] MEDS ORDERED: ACETAMINOPHEN 500 MG TAB PO ONE (23:25)
[2023-10-01] MEDS ORDERED: ACETAMINOPHEN TAB 650MG DOSE (2X325MG) PO PRN ×2 (02:20→05:00)
[2023-10-01 04:50] VITALS: BP 127/82; TEMP 97.9; O2SAT 97
[2023-10-01 05:55] LABS: HEMATOCRIT 49.3 % (42.0-52.0)
[2023-10-01] MEDS: LEVOTHYROXINE 50MCG TABLET (0.05MG) PO SCH (06:05)
[2023-10-01] MEDS: HEPARIN SOD (PORCINE) 5000UNITS/ML 1ML VIAL/SYRINGE SQ SCH (06:05)
[2023-10-01 08:14] LABS: CREATININE FOR GFR 1.49 MG/DL (0.70-1.30); GLOMERULAR FILTRATION RATE 48.1 (>35); POTASSIUM SERUM 4.9 MMOL/L (3.5-5.1)
[2023-10-01] MEDS: ASPIRIN 81MG ENTERIC TABLET PO SCH (08:24)
[2023-10-01] MEDS: DOCUSATE SODIUM 100MG CAPSULE PO SCH ×2 (08:24→21:49)
[2023-10-01] MEDS: dilTIAZem **CD** 180MG CAP PO SCH (08:28)
[2023-10-01 09:13] LABS: BASO # 0.1 10^3/uL (0.0-0.2); BASO % 0.4 % (0.0-1.0); EOS % 0.3 % (0.0-3.0); LYMPH # 1.7 10^3/uL (1.5-5.0); LYMPH % 12.2 % (24.0-44.0); MEAN CORPUSCULAR HEMOGLOBIN 32.6 pg (27.0-33.0); MEAN CORPUSCULAR HGB CONC 34.5 g/dl (32.0-36.5); MEAN CORPUSCULAR VOLUME 94.4 fl (80.0-96.0); MONO # 1.2 10^3/uL (0.0-0.8); MONO % 8.2 % (2.0-8.0); NEUTROPHILS % 78.5 % (36.0-66.0); PLATELET COUNT, AUTOMATED 267 10^3/uL (150-450); RED BLOOD COUNT 5.31 10^6/uL (4.30-6.10)
[2023-10-01 10:16] LABS: C REACTIVE PROTEIN QUANTITATIV 1.9 MG/DL (<1.0); ERYTHROCYTE SEDIMENTATION RATE 48 mm/hr (0-20)
[2023-10-01 10:24] LABS: PROCALCITONIN 0.07 ng/ml
[2023-10-01] MEDS: DIMETHICONE 2% OINTMENT(VANICREAM) 70GM TUBE TOP SCH ×2 (11:34→21:49)
[2023-10-01] MEDS: NS 0.45% 1,000 ML IV SCH (11:35)
[2023-10-02] MEDS: NS 0.45% 1,000 ML IV SCH ×2 (00:51→13:41)
[2023-10-02 05:19] VITALS: BP 120/71; TEMP 98.1; O2SAT 96
[2023-10-02] MEDS: LEVOTHYROXINE 50MCG TABLET (0.05MG) PO SCH (05:44)
[2023-10-02] MEDS: DIMETHICONE 2% OINTMENT(VANICREAM) 70GM TUBE TOP SCH ×2 (08:44→20:03)
[2023-10-02] MEDS: DOCUSATE SODIUM 100MG CAPSULE PO SCH ×2 (08:45→20:02)
[2023-10-02] MEDS: dilTIAZem **CD** 180MG CAP PO SCH (08:47)
[2023-10-02 09:53] LABS: BASO # 0.1 10^3/uL (0.0-0.2); BASO % 0.5 % (0.0-1.0); EOS # 0.1 10^3/uL (0.0-0.5); EOS % 0.6 % (0.0-3.0); HEMATOCRIT 48.5 % (42.0-52.0); HEMOGLOBIN 16.5 g/dl (13.5-17.5); LYMPH # 1.8 10^3/uL (1.5-5.0); LYMPH % 15.9 % (24.0-44.0); MEAN CORPUSCULAR HEMOGLOBIN 32.3 pg (27.0-33.0); MEAN CORPUSCULAR VOLUME 94.9 fl (80.0-96.0); MONO # 0.8 10^3/uL (0.0-0.8); MONO % 7.2 % (2.0-8.0); NEUTROPHILS # 8.4 10^3/uL (1.5-8.5); NEUTROPHILS % 75.5 % (36.0-66.0); PLATELET COUNT, AUTOMATED 230 10^3/uL (150-450); RED BLOOD COUNT 5.11 10^6/uL (4.30-6.10); WHITE BLOOD COUNT 11.1 10^3/uL (4.0-10.0)
[2023-10-02 10:00] LABS: ERYTHROCYTE SEDIMENTATION RATE 31 mm/hr (0-20)
[2023-10-02 10:24] LABS: CALCIUM LEVEL 8.7 MG/DL (8.3-10.6); CREATININE FOR GFR 1.3 MG/DL (0.70-1.30); GLOMERULAR FILTRATION RATE 56.3 (>35); POTASSIUM SERUM 4.5 MMOL/L (3.5-5.1)
[2023-10-02 10:33] LABS: PROCALCITONIN 0.07 ng/ml
[2023-10-03] MEDS: NS 0.45% 1,000 ML IV SCH (04:12)
[2023-10-03 04:52] VITALS: BP 117/82; TEMP 98.1; O2SAT 95
[2023-10-03] MEDS: LEVOTHYROXINE 50MCG TABLET (0.05MG) PO SCH (05:58)
[2023-10-03] MEDS: DOCUSATE SODIUM 100MG CAPSULE PO SCH ×2 (09:02→20:29)
[2023-10-03] MEDS: DIMETHICONE 2% OINTMENT(VANICREAM) 70GM TUBE TOP SCH ×2 (09:02→20:29)
[2023-10-03] MEDS: dilTIAZem **CD** 180MG CAP PO SCH (09:02)
[2023-10-04 05:47] VITALS: BP 123/65; TEMP 97.7; O2SAT 99
[2023-10-04] MEDS: LEVOTHYROXINE 50MCG TABLET (0.05MG) PO SCH (06:02)
[2023-10-04 09:15] VITALS: BP 121/58
[2023-10-04 09:23] VITALS: BP 121/58
[2023-10-04] MEDS: dilTIAZem **CD** 180MG CAP PO SCH (09:23)
[2023-10-04] MEDS: DOCUSATE SODIUM 100MG CAPSULE PO SCH (09:23)
[2023-10-04] MEDS: DIMETHICONE 2% OINTMENT(VANICREAM) 70GM TUBE TOP SCH (09:24)
[2023-10-04] MEDS ORDERED: METF10004 PO (11:07)
== END 2023-10-04 13:30 | DRG 177 ==
LOC: M ED 08:34 → EDBD 08:34 → INTOOBSV 12:59 → M ED INP 12:59 → M MSPAV 14:30 → OBSVTOIN 09-15 10:28 → M MSPAV 09-22 09:50
PROVIDERS: ADMIT General Practice; ATTEND Internal Medicine
PROC: XW033E5 Introduction of Remdesivir Anti-infective into Peripheral Vein, Percutaneous Approach, New Technology Group 5 (ICD-10-PCS; principal; 2023-09-13)
PROC: 3E0333Z Introduction of Anti-inflammatory into Peripheral Vein, Percutaneous Approach (ICD-10-PCS; 2023-09-13)
DX: U07.1 COVID-19 (principal); G93.41 Metabolic encephalopathy; E87.1 Hypo-osmolality and hyponatremia; G91.2 (Idiopathic) normal pressure hydrocephalus; N17.9 Acute kidney failure, unspecified; N39.0 Urinary tract infection, site not specified; F03.90 Unspecified dementia, unspecified severity, without behavioral disturbance, psychotic disturbance, mood disturbance, and anxiety; R29.6 Repeated falls; R53.81 Other malaise; I16.0 Hypertensive urgency; E86.0 Dehydration; E66.9 Obesity, unspecified; Z66 Do not resuscitate; K76.0 Fatty (change of) liver, not elsewhere classified; N18.30 Chronic kidney disease, stage 3 unspecified; I48.0 Paroxysmal atrial fibrillation; E11.22 Type 2 diabetes mellitus with diabetic chronic kidney disease; I12.9 Hypertensive chronic kidney disease with stage 1 through stage 4 chronic kidney disease, or unspecified chronic kidney disease; I87.2 Venous insufficiency (chronic) (peripheral); R60.0 Localized edema; B96.4 Proteus (mirabilis) (morganii) as the cause of diseases classified elsewhere; R26.89 Other abnormalities of gait and mobility; R31.0 Gross hematuria; E03.9 Hypothyroidism, unspecified; E78.5 Hyperlipidemia, unspecified; Z68.31 Body mass index [BMI] 31.0-31.9, adult; Z79.82 Long term (current) use of aspirin; Z79.84 Long term (current) use of oral hypoglycemic drugs; Z79.899 Other long term (current) drug therapy; Z79.890 Hormone replacement therapy; Z88.8 Allergy status to other drugs, medicaments and biological substances

== ENCOUNTER → 2023-11-01 | Outpatient (REF) | payer MEDICARE ==
[~2023-11-01] MED LIST changes: +ALLO100T PO; +FURO20TA2 PO; +METF10004 PO
[2023-11-02 11:12] LABS: AMORPHOUS SEDIMENT SMALL (NEGATIVE); APPEARANCE, URINE CLOUDY (CLEAR); BACTERIA, URINE AUTO 1+ (NEGATIVE); BILIRUBIN, URINE AUTO NEGATIVE (NEGATIVE); BLOOD, URINE BLOOD 3+ (NEGATIVE); COLOR, URINE AMBER (YELLOW); GLUCOSE, URINE (UA) AUTO 1+ mg/dL (NEGATIVE); KETONE, URINE AUTO NEGATIVE (NEGATIVE); LEUKOCYTE ESTERASE, URINE AUTO 2+ (NEGATIVE); MUCUS, URINE SMALL (NEGATIVE); NITRITE, URINE AUTO NEGATIVE (NEGATIVE); PROTEIN, URINE AUTO 3+ mg/dL (NEGATIVE); RBC, URINE AUTO TNTC /HPF (0-3); SPECIFIC GRAVITY URINE AUTO 1.018 (1.002-1.035); SQUAMOUS EPITHELIAL CELL UR AU 1 /HPF (0-6); UROBILINOGEN, URINE AUTO 0.2 mg/dL (0.0-2.0); WBC, URINE AUTO TNTC /HPF (0-3)
== END ==
LOC: M SMT 09:52
PROVIDERS: ATTEND Nurse Practitioner Family
DX: R31.0 Gross hematuria (principal)

== ENCOUNTER → 2023-12-23 | Day surgery (SDC) | payer MEDICARE ==
[~2023-12-23] VITALS: Ht 170.2 cm; Wt 83.7 kg
[~2023-12-23] MED LIST changes: +ACETAMINOPHEN 1000MG 100ML IV BAG As Ordered ONE; +AMOX875T2 PO; +ETOMIDATE INJ 20MG/10ML VIAL As Ordered ONE; +LIDOCAINE 2% 100MG/5ML SDV (FOR ANES.) As Ordered ONE; +METF500T13 PO; +ONDANSETRON 4MG 2ML VIAL As Ordered ONE; +ROCURONIUM BROMIDE 50MG/5ML VIAL As Ordered ONE; +SUGAMMADEX SODIUM 500 MG/5 ML VIAL (BRIDION) As Ordered ONE; +fentaNYL 100 MCG/2 ML INJECTION As Ordered ONE; +propofoL 200 MG/20 ML VIAL As Ordered ONE
[2023-12-23] MEDS: LR 1,000 ML IV SCH (08:54)
[2023-12-23] MEDS: ceFAZolin SOD 2 GM in IV 1 EA IV ONE (09:12)
[2023-12-23 11:20] VITALS: BP 166/76; TEMP 96.8; O2SAT 98
== END | disposition home or self-care (01) ==
LOC: M SDC 07:10
PROVIDERS: ATTEND Urology
DX: C67.3 Malignant neoplasm of anterior wall of bladder (principal); C67.0 Malignant neoplasm of trigone of bladder; I48.91 Unspecified atrial fibrillation; E11.9 Type 2 diabetes mellitus without complications; G47.9 Sleep disorder, unspecified; Z88.8 Allergy status to other drugs, medicaments and biological substances; Z79.899 Other long term (current) drug therapy; Z87.891 Personal history of nicotine dependence
CPT/HCPCS: 52240; 88307; J0131; J0690; J1100; J2405; J3010